=== PATIENT | female | born 1945 | race Caucasian/White ===

== ENCOUNTER 2021-03-14 14:57 | Inpatient (IN) | payer MEDICARE, OTHER ==
[~2021-03-14] VITALS: Ht 167.6 cm; Wt 55.3 kg
--- NOTE | 2021-03-14 15:28 | NUR ---
BIB DAUGHTER FOR AUDITORY HALLUCINATIONS REGARDING HER . PT DENIES VOICES ARE TELLING HER TO DO ANYTHING. DENIES SI OR INTENTION TO HURT SELF. PT HAS NOT BEEN EATING FOR 2 WEEKS. AAOX4, BREATHING EVEN AND UNLABORED, PULSES 2+ BILATERALLY.
[2021-03-14 15:58] LABS: BASOPHILS % (AUTO) 0.1 % (0.0-2.0); EOSINOPHILS % (AUTO) 0.1 % (0.0-6.0); HEMATOCRIT 39 % (33-45); HEMOGLOBIN 13.4 g/dL (11.5-14.8); LYMPHOCYTES # (AUTO) 0.8 K/uL (0.8-4.8); MEAN CORPUSCULAR HGB CONC 34 g/dl (31.0-36.0); MEAN CORPUSCULAR VOLUME 92 fL (82-100); MONOCYTES # (AUTO) 0.7 K/uL (0.1-1.30); MONOCYTES % (AUTO) 9.4 % (2.0-12.0); NEUTROPHILS # (AUTO) 5.9 K/uL (1.8-8.9); NEUTROPHILS % (AUTO) 79.4 % (43.0-81.0); PLATELET COUNT (AUTO) 253 K/uL (150-450); RED BLOOD CELL COUNT(AUTO) 4.29 MIL/uL (4.0-5.2); WHITE BLOOD COUNT (AUTO) 7.4 K/uL (4.3-11.0)
[2021-03-14] MEDS ORDERED: METO-357 PO (16:02)
[2021-03-14] MEDS ORDERED: RISP1TAB97 PO (16:02)
[2021-03-14] MEDS ORDERED: DIVA-78 PO (16:02)
[2021-03-14] MEDS ORDERED: DEXT15DR6 OP (16:02)
[2021-03-14] MEDS ORDERED: GUAI-1133 PO (16:02)
[2021-03-14] MEDS ORDERED: MELA5TAB PO (16:02)
[2021-03-14] MEDS ORDERED: SERT50TA PO (16:02)
[2021-03-14] MEDS ORDERED: CALC100067 PO (16:02)
[2021-03-14] MEDS ORDERED: ARIP5TAB10 PO (16:02)
[2021-03-14] MEDS ORDERED: RISP2TAB85 PO (16:02)
[2021-03-14] MEDS ORDERED: ACET-2605 PO (16:02)
[2021-03-14] MEDS ORDERED: CALC-1143 PO (16:02)
--- NOTE | 2021-03-14 16:09 | NUR ---
COVID SWAB DONE AND SENT TO THE LAB
[2021-03-14 16:16] LABS: CALCIUM, SERUM 8.6 mg/dL (8.5-10.1); CARBON DIOXIDE 27 mmol/L (21-32); CHLORIDE 90 mmol/L (98-107); CREATININE 1.1 mg/dL (0.6-1.3); GLUCOSE 102 mg/dL (74-106); SODIUM SERUM 125 mmol/L (136-145); UREA NITROGEN, BLOOD 11 mg/dL (7-18)
[2021-03-14 16:19] LABS: BILIRUBIN,URINE NEGATIVE (NEGATIVE); COLOR,URINE YELLOW (YELLOW); LEUKOCYTE ESTERASE ,URINE MODERATE (NEGATIVE); NITRITE, URINE NEGATIVE (NEGATIVE); PROTEIN,URINE NEGATIVE (NEGATIVE); UGLUCOSE NEGATIVE (NEGATIVE); UROBILINOGEN,URINE 0.2 EU/dL (0.2)
[2021-03-14 16:24] LABS: ALANINE AMINOTRANSFERASE 17 U/L (12-78); ALBUMIN 3.3 g/dL (3.4-5.0); ALCOHOL, BLOOD < 3 mg/dL (0-0); ALKALINE PHOSPHATASE 62 U/L (46-116); ASPARTATE AMINOTRANSFERASE 21 U/L (15-37); BILIRUBIN,DIRECT 0.1 mg/dL (0.0-0.2); BILIRUBIN,TOTAL 0.2 mg/dL (0.2-1.0); TOTAL PROTEIN, SERUM 6.7 g/dL (6.4-8.2)
[2021-03-14 16:26] LABS: BACTERIA,URINE 1+ /HPF (None Seen); RBC,URINE 0-2 /HPF (0-2); SQUAMOUS EPITHELIAL CELL,UR Few /HPF (None Seen)
[2021-03-14 16:30] LABS: ACETAMINOPHEN < 0 ug/ml (10-30)
[2021-03-14] MEDS ORDERED: IV NS 0.9% 1,000 ML BAG IV ONE (16:30)
[2021-03-14] MEDS ORDERED: CEFTRIAXONE 1GM BAG (ER ONLY) 50 ML IV ONE (16:52)
[2021-03-14] MEDS ORDERED: CEFTRIAXONE 1GM BAG (ER ONLY) 1 GM/50 ML PIGGYBACK IV ONE (17:00)
[2021-03-14] MEDS ORDERED: IV NS 0.9% 500 ML BAG IV ONE (17:00)
--- NOTE | 2021-03-14 17:07 | NUR ---
PT LAYING COMFORTABLY IN BED
[2021-03-14] MEDS ORDERED: ACETAMINOPHEN 325 MG TABLET ONE (17:10)
[2021-03-14] MEDS ORDERED: ACETAMINOPHEN 325 MG TABLET PO ONE (17:30)
[2021-03-14] MEDS ORDERED: IV NS 0.9% 500 ML IV ONE (17:30)
[2021-03-14 18:01] LABS: THYROID STIMULATING HORMONE 1.151 uIU/mL (0.358-3.74); URIC ACID 2.2 mg/dL (2.6-7.2)
--- NOTE | 2021-03-14 18:32 | NUR ---
PT LAYING COMFORTABLY IN BED
[2021-03-14 19:13] LABS: CREATININE, URINE 14.8 MG/DL (30.0-125.0)
[2021-03-14 19:27] LABS: CALCIUM, SERUM 8.7 mg/dL (8.5-10.1); CREATININE 0.9 mg/dL (0.6-1.3); POTASSIUM 3.9 mmol/L (3.5-5.1)
--- NOTE | 2021-03-14 20:10 | NUR ---
IV NS CHANGED TO 50ML/HR PER HALF BACKER ORDER
[2021-03-14] MEDS ORDERED: OLANZAPINE 5 MG TABLET ONE (20:17)
[2021-03-14] MEDS ORDERED: OLANZAPINE 5 MG TABLET PO ONE (20:30)
[2021-03-14] MEDS ORDERED: ACETAMINOPHEN ES 500 MG TABLET PO PRN (21:30)
[2021-03-14] MEDS ORDERED: CALCIUM CARBONATE 500 MG TAB.CHEW PO PRN (21:30)
[2021-03-14] MEDS ORDERED: MAGNESIUM HYDROXIDE 30 ML UDC PO PRN (22:00)
[2021-03-14] MEDS ORDERED: Medication Not On Formulary EA (Melatonin 10 MG) PO SCH (22:00)
[2021-03-14] MEDS ORDERED: MAG HYDROX/AL HYDROX/SIMETH 30 ML UDC PO PRN (22:00)
[2021-03-14] MEDS ORDERED: risperiDONE 1 MG TABLET PO SCH (22:00)
[2021-03-14] MEDS ORDERED: IV NS 0.9% 1,000 ML IV PRN (22:00)
[2021-03-14] MEDS ORDERED: Z GUARD REMEDY 2 OZ OINT TP PRN (22:00)
[2021-03-14] MEDS ORDERED: ONDANSETRON HCL/PF 4 MG/2 ML VIAL IVP PRN (22:00)
--- NOTE | 2021-03-14 23:08 | NUR ---
PT WILL BE GOING TO 116-1 PER RN HAND PACKER/PACKAGER.
--- NOTE | 2021-03-15 00:54 | NUR ---
REPORT GIVEN TO MART WHITE
--- NOTE | 2021-03-15 01:17 | NUR ---
PT TRANSPORTED TO [facility] WITHOUT INCIDENT. ALL V/S STABLE AT TIME OF TRANSFER.
[2021-03-15 01:30] VITALS: BP 154/84
--- NOTE | 2021-03-15 01:30 | NUR ---
SYSTEMS DEVELOPMENT MANAGER NOTES: 76 YEARS OLD FEMALE ADMITTED FROM ER, UNDER SERVICE OF FARAZ HORNE FOR PSYCH CONSULT DUE TO AUDITORY HALLUCINATION. DIAGNOSIS OF UTI, HYPONATREMIA. PATIENT ALERT, ORIENTED X 3, VERBALLY RESPONSIVE. NO SOB, NO CHEST CONGESTION, BREATHING EVEN AND UNLABORED. O2 SAT 97% AT ROOM AIR. IV ACCESS ON RT FOREARM #20G INTACT AND PATENT. NO S/S OF INFILTRATIONS. RUNNING NS AT 90CC/HR. BODY ASSESSMENT DONE. NOTED REDNESS ON LEFT ELBOW AND SACRUM AREA. NO OPEN SKIN OR ANY OTHER SKIN DISCOLORATIONS NOTED. SKIN WARM AND DRY TO TOUCH. ALL DUE MEDS GIVEN AND PATIENT TOLERATED WELL. COOPERATIVE W/ CARE. CONTINENT ON BOWEL AND BLADDER. ABLE TOP GO TO RESTROOM WITH ASSIST. ALL SAFETY MEASURE IN PLACE. X2 BED SIDE RAILS UP. BED IN LOW POSITION AND LOCKED. PLACE CALL LIGHT WITH IN REACH. WILL CONTINUE TO MONITOR FOR ANY CHANGES
[2021-03-15] MEDS ORDERED: POLYVINYL ALCOHOL 15 ML BOTTLE OP PRN (03:00)
[2021-03-15] MEDS: SERTRALINE HCL 50 MG TABLET PO SCH ×2 (03:06→21:14)
[2021-03-15] MEDS: IV NS 0.9% 1,000 ML IV PRN ×2 (03:09→14:52)
[2021-03-15 04:00] VITALS: BP 152/76
[2021-03-15 06:37] LABS: BASOPHILS % (AUTO) 0.4 % (0.0-2.0); EOSINOPHILS % (AUTO) 1.1 % (0.0-6.0); HEMATOCRIT 36 % (33-45); LYMPHOCYTES # (AUTO) 1.4 K/uL (0.8-4.8); MEAN CORPUSCULAR HGB CONC 34 g/dl (31.0-36.0); MEAN CORPUSCULAR VOLUME 93 fL (82-100); MONOCYTES # (AUTO) 0.7 K/uL (0.1-1.30); MONOCYTES % (AUTO) 12.4 % (2.0-12.0); NEUTROPHILS # (AUTO) 3.1 K/uL (1.8-8.9); NEUTROPHILS % (AUTO) 59.1 % (43.0-81.0); PLATELET COUNT (AUTO) 241 K/uL (150-450); RED BLOOD CELL COUNT(AUTO) 3.85 MIL/uL (4.0-5.2); WHITE BLOOD COUNT (AUTO) 5.3 K/uL (4.3-11.0)
--- NOTE | 2021-03-15 06:48 | NUR ---
RN CLOSING NOTES: PATIENT ASLEEP IN BED BUT EASILY AROUSABLE, ALERT/ORIENTED X 3 AND VERBALLY RESPONSIVE. ON ROOM AIR. BREATHING EVEN AND UNLABORED. IV ACCESS ON RT FOREARM #20G. INTACT AND PATENT. NO S/S OF INFILTRATIONS. RUNNING NS AT 90CC/HR. NO C/O PAIN OR DISCOMFORT. NO ACUTE DISTRESS. BED ALARM ON. ASSISTED HER TO THE RESTROOM. ALL SAFETY MEASURE IN PLACE. SIDE RAILS ARE UP X2. BED IN LOW POSITION AND LOCKED. PLACE CALL LIGHT WITH IN REACH. WILL ENDORSE TO MORNING SHIFT NURSE.
--- NOTE | 2021-03-15 07:00 | NUR ---
RN NOTE REPORT REC'D AT BEDSIDE BY CRISTINA/MART WHITE. PT SOUND ASLEEP. LEFT UNDISTURBED. NO SOB. ON RA. APPEARS COMFORTABLE ON HOB 30 DEG. IVF INFUSING WELL ON RH. SAFETY MEASURES OBSERVED. CALL LIGHT WITHIN REACH. BED ALARM IN PLACE FOR SAFETY. WILL CONTINUE TO MONITOR.
[2021-03-15 07:07] LABS: CALCIUM, SERUM 9.2 mg/dL (8.5-10.1); CREATININE 0.9 mg/dL (0.6-1.3); MAGNESIUM 1.9 mg/dL (1.8-2.4); PHOSPHORUS 3.7 mg/dL (2.5-4.9); POTASSIUM 3.9 mmol/L (3.5-5.1)
--- NOTE | 2021-03-15 07:30 | NUR ---
RN NOTE PT IS NOW AWAKE. ORIENTED X4. DENIES ANY AUDITORY HALLUCINATION. ASSISTEDTO THE RESTROOM AND BACK TO BED. NO C/O PAIN. WILL CONTINUE TO MONITOR
--- NOTE | 2021-03-15 08:11 | NUR ---
RN NOTE ASKED PT WHAT HER CODE STATUS IS BUT SHE SAID "I DON'T KNOPW" THUS CALLED PT'S DTR. PEÑA RE: CODE STATUS. SHE STATES THAT PT. FOR NOW IS FULL CODE. WILL INFORM .
[2021-03-15] MEDS: ARIPIPRAZOLE 5 MG TABLET PO SCH ×2 (08:21→20:32)
[2021-03-15] MEDS: risperiDONE 1 MG TABLET PO SCH ×2 (08:21→20:32)
[2021-03-15] MEDS: DIVALPROEX SODIUM 500 MG TABLET.DR PO SCH ×3 (08:21→17:26)
[2021-03-15] MEDS: METOPROLOL SUCCINATE 50 MG TAB.SR.24H PO SCH (08:22)
[2021-03-15] MEDS: CALCIUM CARBONATE (1250) 500 MG TABLET PO SCH (08:23)
[2021-03-15] MEDS: ACETAMINOPHEN 325 MG TABLET PO PRN (09:09)
--- NOTE | 2021-03-15 10:10 | NUR ---
RN NOTE PT VERBALIZED FEELING BETTER WITH HER H/A AFTER TYLENOL PO GIVEN AN HOUR AGO. NEEDS ATTENDED.
[2021-03-15 12:00] VITALS: BP 148/89
--- NOTE | 2021-03-15 13:27 | NUR ---
RN NOTE NOTIFIED DR. HALE RE: PT'S ANXIETY ATTACK AND DESIRE TO LEAVE AMA.NEW ORDER NOTED.
[2021-03-15] MEDS: ALPRAZOLAM 0.25 MG TABLET PO PRN (13:32)
[2021-03-15] MEDS: ASPIRIN/ACETAMINOPHEN/CAFFEINE 1 EACH TABLET PO PRN ×2 (14:49→22:20)
[2021-03-15] MEDS ORDERED: CEFTRIAXONE 1 G in IV D5W 50 ML IV SCH (17:00)
--- NOTE | 2021-03-15 17:00 | NUR ---
RN NOTE PT REFUSED DEPAKOTE. IMPORTANCE EMPHASIZED. PILL DISCARDED.
[2021-03-15 17:07] VITALS: BP 144/91
--- NOTE | 2021-03-15 19:00 | NUR ---
RN NOTE PT IN BED AWAKE ALERT. NO SOB. DENIES H/A NOR AUDITORY HALLUCINATION. IVF INFUSING WELL TO RFA. SAFETY MEASURES IN PLACE. ENDORSE CARE TO CHRISTOPHER BISHOP.
--- NOTE | 2021-03-15 19:20 | NUR ---
MS/RN OPENING NOTE RECEIVED PATIENT AMBULATING IN ROOM WITH WALKER. PATIENT IS ALERT AND ORIENTED X 2-3. ABLE TO MAKE NEEDS KNOWN. DENIES PAIN AT THIS TIME. CONTINUES ON ROOM AIR WITH NO S/SX OF RESPIRATORY DISTRESS NOTED. IV ACCESS TO RIGHT FOREARM #20G INTACT AND PATENT. CONTINUES ON IVF NS 0.9% @ 90ML/HR. CONTINUES ON IV ABX FOR UTI. CONTINUES ON SOFT DIET WITH NO S/SX OF ASPIRATION NOTED. CALL LIGHT WITHIN REACH. ASPIRATION, FALL AND SAFETY PRECAUTIONS MAINTAINED. WILL CONTINUE TO MONITOR.
--- NOTE | 2021-03-16 | NUR ---
MS/RN NOTE ATTEMPTED TO RECONNECT IVF AFTER PATIENT WAS UP AMBULATING. PATIENT REFUSING IVF AT THIS TIME SAYING "I DONT NEED THEM". EXPLAINED RISK/BENEFITS WITH PATIENT CONTINUING TO REFUSE. IV TO RIGHT FOREARM #20G INTACT AND PATENT. WILL CONTINUE TO MONITOR.
[2021-03-16] MEDS: IV NS 0.9% 1,000 ML IV PRN (00:40)
[2021-03-16] MEDS: ALPRAZOLAM 0.25 MG TABLET PO PRN ×2 (02:45→18:25)
--- NOTE | 2021-03-16 02:49 | NUR ---
MS/RN NOTE PATIENT REQUESTING XANAX FOR ANXIETY. ADMINISTERED PRN XANAX 0.25MG PER ORDERS. WILL CONTINUE TO MONITOR.
--- NOTE | 2021-03-16 06:30 | NUR ---
MS/RN CLOSING NOTE PATIENT CURRENTLY SLEEPING IN BED. ALERT AND ORIENTED X 2-3. ABLE TO MAKE NEEDS KNOWN. DENIES PAIN AT THIS TIME. CONTINUES ON ROOM AIR WITH NO S/SX OF RESPIRATORY DISTRESS NOTED. IV ACCESS TO RIGHT FOREARM #20G INTACT AND PATENT. CONTINUES TO REFUSE IVF. GOOD PO FLUID INTAKE NOTED. CONTINUES ON IV ABX FOR UTI. CONTINUES ON SOFT DIET WITH NO S/SX OF ASPIRATION NOTED. CALL LIGHT WITHIN REACH. ASPIRATION, FALL AND SAFETY PRECAUTIONS MAINTAINED. WILL ENDORSE PLAN OF CARE TO ONCOMING SHIFT.
[2021-03-16 07:29] LABS: BASOPHILS % (AUTO) 0.4 % (0.0-2.0); EOSINOPHILS % (AUTO) 1.1 % (0.0-6.0); HEMATOCRIT 32 % (33-45); LYMPHOCYTES # (AUTO) 1.4 K/uL (0.8-4.8); LYMPHOCYTES % (AUTO) 25.7 % (20.0-44.0); MEAN CORPUSCULAR HGB CONC 34 g/dl (31.0-36.0); MEAN CORPUSCULAR VOLUME 93 fL (82-100); MONOCYTES # (AUTO) 0.7 K/uL (0.1-1.30); MONOCYTES % (AUTO) 13.7 % (2.0-12.0); NEUTROPHILS # (AUTO) 3.2 K/uL (1.8-8.9); NEUTROPHILS % (AUTO) 59.1 % (43.0-81.0); PLATELET COUNT (AUTO) 236 K/uL (150-450); RED BLOOD CELL COUNT(AUTO) 3.46 MIL/uL (4.0-5.2); WHITE BLOOD COUNT (AUTO) 5.4 K/uL (4.3-11.0)
--- NOTE | 2021-03-16 07:41 | NUR ---
RN OPENING NOTE RECEIVED PATIENT SLEEPING COMFORTABLY ON ROOM AIR O2 SAT 98% WITH NO S/SX OF RESPIRATORY DISTRESS NOTED. IV ACCESS TO RIGHT FOREARM #20G INTACT AND PATENT. SAFETY MEASURES IN PLACE BED ALARM ON, CALL LIGHT WITHIN REACH. WILL CONTINUE TO MONITOR.
[2021-03-16 07:49] LABS: CALCIUM, SERUM 8.6 mg/dL (8.5-10.1); CREATININE 0.9 mg/dL (0.6-1.3); PHOSPHORUS 3.4 mg/dL (2.5-4.9)
[2021-03-16 08:59] VITALS: BP 163/97
[2021-03-16] MEDS: ARIPIPRAZOLE 5 MG TABLET PO SCH ×2 (09:09→21:21)
[2021-03-16] MEDS: METOPROLOL SUCCINATE 50 MG TAB.SR.24H PO SCH (09:09)
[2021-03-16] MEDS: CALCIUM CARBONATE (1250) 500 MG TABLET PO SCH (09:09)
[2021-03-16] MEDS: risperiDONE 1 MG TABLET PO SCH ×3 (09:09→21:22)
--- NOTE | 2021-03-16 09:26 | NUR ---
RN NOTE PT PULLED OUT THE NICOLÁS IV AND IS ALSO REFUSING FLUIDS WILL INFORM DOCTOR
[2021-03-16 13:00] VITALS: BP 140/90
[2021-03-16] MEDS: CEPHALEXIN MONOHYDRATE 250 MG CAPSULE PO SCH ×2 (13:07→16:07)
[2021-03-16] MEDS: DIVALPROEX SODIUM 500 MG TABLET.DR PO SCH (16:07)
--- NOTE | 2021-03-16 18:33 | NUR ---
RN CLOSING NOTE PATIENT REMAINS IN BED ALERT AND ORIENTED X2/3 CONFUSED AT TIMES, ON ROOM AIR O2 SAT 97% WITH NO S/SX OF RESPIRATORY DISTRESS NOTED. NO IV ACCES PT REFUSED AND DOCTOR NOTIFIED, DC IV MEDS, XANAX GIVEN AT 18:25, ALL NEEDS MET DURING SHIFT PT KEEP CLEAN AND COMFORTABLE, SAFETY MEASURES IN PLACE BED ALARM ON, CALL LIGHT WITHIN REACH. WILL ENDORSE TO BABY COUNSELORDIVISION OFFICER WEAPONS DEPARTMENT
--- NOTE | 2021-03-16 19:10 | NUR ---
RN NOTES RECEIVED REPORT FROM MORNING RN. PATIENT IS A/O X 2 WITH PERIODS OF CONFUSION. PATIENT IN BED WATCHING TV. NO DISTRESS NO SOB AT THIS TIME. PATIENT ON ROOM AIR SATING 95%. VITAL SIGNS TAKEN RECORDED. ALL SAFETY MEASURES IN PLACE AT ALL TIEMS. CALL LIGHT WITHIN REACH. BED ON LOWEST POSITION AND LOCKED. HOB ELEVATED.CALL LIGHT WITHIN REACH. WILL CLOSELY MONITOR THE PATIENT.
[2021-03-16 20:00] VITALS: BP 133/70
[2021-03-16] MEDS: SERTRALINE HCL 50 MG TABLET PO SCH (21:22)
[2021-03-16] MEDS: ACETAMINOPHEN 325 MG TABLET PO PRN (23:13)
[2021-03-17 04:00] VITALS: BP 133/71
--- NOTE | 2021-03-17 06:42 | NUR ---
RN NOTES PATIENT IN BED AWAKE WATCHING TV. PATIENT REMAINS STABLE NO SIGNIFICANT CHANGES IN HEALTH CONDITION. VITAL SIGNS WNL. ALL DUE MEDS GIVEN ORDERED. ALL SAFETY MEASURES IN PLACE. HOB ELEVATED. CALL LIGHT WITHIN REACH. BED ON LOWEST POSITION AND LOCKED. NO SOB NO DISTRESS ALL NEEDS ATTENDED PROMPTLY. KEPT CLEAN AND DRY AT ALL TIMES. FREQUENT VISUAL MONITORING RENDERED. ENDORSED
[2021-03-17 06:57] LABS: BASOPHILS % (AUTO) 0.1 % (0.0-2.0); EOSINOPHILS % (AUTO) 2.1 % (0.0-6.0); HEMATOCRIT 36 % (33-45); HEMOGLOBIN 12.2 g/dL (11.5-14.8); LYMPHOCYTES # (AUTO) 0.9 K/uL (0.8-4.8); LYMPHOCYTES % (AUTO) 17.1 % (20.0-44.0); MEAN CORPUSCULAR HGB CONC 34 g/dl (31.0-36.0); MEAN CORPUSCULAR VOLUME 93 fL (82-100); MONOCYTES # (AUTO) 0.6 K/uL (0.1-1.30); NEUTROPHILS # (AUTO) 3.5 K/uL (1.8-8.9); NEUTROPHILS % (AUTO) 69.7 % (43.0-81.0); PLATELET COUNT (AUTO) 247 K/uL (150-450); RED BLOOD CELL COUNT(AUTO) 3.88 MIL/uL (4.0-5.2); WHITE BLOOD COUNT (AUTO) 5.1 K/uL (4.3-11.0)
[2021-03-17 07:34] LABS: CALCIUM, SERUM 8.6 mg/dL (8.5-10.1); CREATININE 0.9 mg/dL (0.6-1.3); MAGNESIUM 1.8 mg/dL (1.8-2.4); PHOSPHORUS 3.3 mg/dL (2.5-4.9); POTASSIUM 4.1 mmol/L (3.5-5.1)
--- NOTE | 2021-03-17 07:42 | NUR ---
RN OPEN NOTE PATIENT RECEIVED SITTING IN BED ALERT AND ORIENTED X2/3, ON ROOM AIR O2 SAT 96% WITH NO S/SX OF RESPIRATORY DISTRESS NOTED. NO IV ACCES PT REFUSED, SAFETY MEASURES IN PLACE BED ALARM ON, CALL LIGHT WITHIN REACH. WILL CONTINUE TO MONITOR
[2021-03-17] MEDS: CEPHALEXIN MONOHYDRATE 250 MG CAPSULE PO SCH ×2 (08:39→16:21)
[2021-03-17] MEDS: ARIPIPRAZOLE 5 MG TABLET PO SCH ×2 (08:40→20:39)
[2021-03-17] MEDS: CALCIUM CARBONATE (1250) 500 MG TABLET PO SCH (08:40)
[2021-03-17] MEDS: DIVALPROEX SODIUM 500 MG TABLET.DR PO SCH ×2 (08:40→16:21)
[2021-03-17] MEDS: risperiDONE 1 MG TABLET PO SCH ×3 (08:40→20:39)
[2021-03-17] MEDS: METOPROLOL SUCCINATE 50 MG TAB.SR.24H PO SCH (08:41)
--- NOTE | 2021-03-17 08:41 | NUR ---
RN NOTES PT IS REFUSING VITAL SIGN
--- NOTE | 2021-03-17 12:30 | NUR ---
RN NOTES PT REFUSED VITAL SIGN AGAIN AND SHE DOES NOT WANT TO EAT LUNCH, SHE ONLY WANTS COFFEE
--- NOTE | 2021-03-17 16:00 | NUR ---
rn pt keeps refusing vital sign
--- NOTE | 2021-03-17 18:00 | NUR ---
RN CLOSING NOTE PATIENT REMAINS SITTING IN BED WALKING AROUND SOME TIMES, ALERT AND ORIENTED X2/3, ON ROOM AIR O2 SAT 98% WITH NO S/SX OF RESPIRATORY DISTRESS NOTED. NO IV ACCES ,PT REFUSED ALSO VITAL SIGN, SAFETY MEASURES IN PLACE BED ALARM ON, CALL LIGHT WITHIN REACH. WILL ENDORSE TO ALARM INVESTIGATORPROJECT PRODUCT MANAGER
--- NOTE | 2021-03-17 19:30 | NUR ---
RN OPENING NOTES: RECEIVED PATIENT IN BED SITTING POSITION. ALERT, ORIENTED X2/3 WITH CONFUSION AND VERBALLY RESPONSIVE. ON ROOM AIR. NO SOB, NO C/O CHEST CONGESTION, BREATHING EVEN AND UNLABORED. NO IV ACCESS DUE TO PATIENT'S REFUSAL. NO C/O PAIN OR DISCOMFORT. NO ACUTE DISTRESS NOTED. CONTINENT ON BOWEL AND BLADDER. PATIENT ABLE TO USE RESTROOM WITH ASSIST. ALL SAFETY MEASURES ON PLACE. BED IN LOW POSITION AND LOCKED. PLACE CALL LIGHT WITH IN REACH. WILL CONTINUE TO MONITOR.
[2021-03-17 20:00] VITALS: BP 139/98
[2021-03-17] MEDS: ALPRAZOLAM 0.25 MG TABLET PO PRN (20:40)
[2021-03-17] MEDS: ASPIRIN/ACETAMINOPHEN/CAFFEINE 1 EACH TABLET PO PRN (20:40)
--- NOTE | 2021-03-17 20:55 | NUR ---
PATIENT C/O HEADACHE, EXCEDRIN GIVEN PER PATIENT'S REQUEST. XANAX GIVEN FOR DUE TO FEELING ANXIETY. TOLERATED WELL. WILL CONTINUE TO MONITOR
--- NOTE | 2021-03-17 21:00 | NUR ---
patient strongly refused to take Zoloft. she mentioned, she already took lots of Meds. wasted. Dr. Park already d/c the medication.
[2021-03-18 04:00] VITALS: BP 149/96
--- NOTE | 2021-03-18 06:30 | NUR ---
RN CLOSING NOTES: PATIENT IN BED AWAKE. ALERT, ORIENTED X2/3 WITH CONFUSION AND VERBALLY RESPONSIVE. ON ROOM AIR, O2 SAT 96%. BREATHING EVEN AND UNLABORED. NO IV ACCESS. NO C/O PAIN OR DISCOMFORT AT THIS MOMENT. NO ACUTE DISTRESS. ALL DUE MEDS GIVEN AND TOLERATED WELL. CONTINENT ON BOWEL AND BLADDER. ABLE TO USE RESTROOM WITH ASSIST. ALL SAFETY MEASURES ON PLACE. BED IN LOW POSITION AND LOCKED. PLACE CALL LIGHT WITH IN REACH. WILL ENDORSE TO MORNING SHIFT.
[2021-03-18 07:05] LABS: BASOPHILS % (AUTO) 0.2 % (0.0-2.0); HEMATOCRIT 34 % (33-45); HEMOGLOBIN 11.7 g/dL (11.5-14.8); LYMPHOCYTES # (AUTO) 0.8 K/uL (0.8-4.8); LYMPHOCYTES % (AUTO) 16.4 % (20.0-44.0); MEAN CORPUSCULAR HGB CONC 34 g/dl (31.0-36.0); MEAN CORPUSCULAR VOLUME 93 fL (82-100); MONOCYTES # (AUTO) 0.5 K/uL (0.1-1.30); MONOCYTES % (AUTO) 11.5 % (2.0-12.0); NEUTROPHILS # (AUTO) 3.4 K/uL (1.8-8.9); NEUTROPHILS % (AUTO) 70.9 % (43.0-81.0); PLATELET COUNT (AUTO) 247 K/uL (150-450); RED BLOOD CELL COUNT(AUTO) 3.69 MIL/uL (4.0-5.2); WHITE BLOOD COUNT (AUTO) 4.7 K/uL (4.3-11.0)
[2021-03-18 07:15] LABS: CALCIUM, SERUM 8.6 mg/dL (8.5-10.1); CREATININE 0.9 mg/dL (0.6-1.3); MAGNESIUM 1.8 mg/dL (1.8-2.4); PHOSPHORUS 3.9 mg/dL (2.5-4.9); POTASSIUM 3.8 mmol/L (3.5-5.1)
--- NOTE | 2021-03-18 07:54 | NUR ---
RN MORNING NOTES PT RECEIVED IN BED IN SUPINE POSITION. PT IS ON RA SAT 95% TOLERATING WELL WITH NO SIGNS OF DISTRESS OR LABORED BREATHING. PT IS A/O X 2- 3 AND MS AND AMBULATORY. PT IS ON SOFT DIET WITH NO IV ACCESS PT REFUSED. PT ALSO REFUSED MORNING VITALS. BED IS LOCKED IN LOWEST POSITION X2 GUARD RAILS, CALL MENDEZ WITHIN REACH, AND ALL HOSPITAL SAFETY PRECAUTIONS ARE IN PLACE. WILL CONTINUE TO MONITOR THIS SHIFT.
[2021-03-18] MEDS: METOPROLOL SUCCINATE 50 MG TAB.SR.24H PO SCH (09:00)
--- NOTE | 2021-03-18 09:30 | NUR ---
RN NOTE MEDICATION PT REFUSED VITALS. BP MED HELD.
[2021-03-18] MEDS: DIVALPROEX SODIUM 500 MG TABLET.DR PO SCH ×2 (09:37→17:33)
[2021-03-18] MEDS: CEPHALEXIN MONOHYDRATE 250 MG CAPSULE PO SCH ×2 (09:37→17:33)
[2021-03-18] MEDS: CALCIUM CARBONATE (1250) 500 MG TABLET PO SCH (09:38)
[2021-03-18] MEDS: risperiDONE 1 MG TABLET PO SCH ×3 (09:38→21:07)
[2021-03-18 12:00] VITALS: BP 149/96
[2021-03-18] MEDS: ASPIRIN/ACETAMINOPHEN/CAFFEINE 1 EACH TABLET PO PRN (13:15)
[2021-03-18] MEDS: ALPRAZOLAM 0.25 MG TABLET PO PRN (13:16)
[2021-03-18 16:00] VITALS: BP 118/82
--- NOTE | 2021-03-18 19:15 | NUR ---
1914 Report received from CHRISTOPHER Cummins for transfer of care.
--- NOTE | 2021-03-18 19:24 | NUR ---
RN CLOSING NOTE PT IS SITTING UP IN CHAIR. PT IS ON RA SAT 96% TOLERATING WELL WITH NO SIGNS OF DISTRESS OR LABORED BREATHING. PT IS A/O X 2- 3 AND MS AND AMBULATORY. PT IS ON SOFT DIET WITH NO IV ACCESS PT REFUSED. PT ALSO REFUSED MORNING VITALS. BED IS LOCKED IN LOWEST POSITION X2 GUARD RAILS, CALL MENDEZ WITHIN REACH, AND ALL HOSPITAL SAFETY PRECAUTIONS ARE IN PLACE. WILL ENDORSE TO BINDERY MACHINE SETTER/SET UP OPERATOR NURSE FOR BALA.
--- NOTE | 2021-03-18 19:35 | NUR ---
1934 Patient sitting up on edge of bed. No complain of pain or any discomfort when asked. Offered to insert new IV line but patient strongly refused. Explained the need for IV access but patient verbalized she does not need it. Able to ambulate without assistance. No c/o SOB when asked. Call light placed within reach and instructed patient to call for assistance.
--- NOTE | 2021-03-18 20:15 | NUR ---
2015 Pt. strongly refusing vital signs to be checked. Explained the importance of vitals signs being checked but to no avail. Pt. is independently ambulating in the room. Safety precautions ensured. Will continue to monitor closely.
--- NOTE | 2021-03-18 22:30 | NUR ---
2230 Patient ambulates back and forth in the room. Safety precaution ensured at all times.
--- NOTE | 2021-03-19 02:20 | NUR ---
0220 In bed watching TV. No distress noted. Cont. to deny pain. Kept clean and dry. Needs anticipated.
--- NOTE | 2021-03-19 04:00 | NUR ---
0400 Patient refused vital signs to be taken again despite encouragement and explanation of importance. In bed sleeping. No c/o pain when assessed and asked to be left alone. Will cont. to monitor.
--- NOTE | 2021-03-19 07:10 | NUR ---
0710 REPORT GIVEN TO CHRISTOPHER NOEL AND KELLI FOR TRANSFER OF CARE WITH QUESTIONS ANSWERED.
--- NOTE | 2021-03-19 07:35 | NUR ---
RN OPENING NOTE PT RECEIVED IN BED IN SUPINE POSITION. PT IS ON RA SAT 95% TOLERATING WELL WITH NO SIGNS OF DISTRESS OR LABORED BREATHING. PT IS A/O X 2- 3 AND MS AND AMBULATORY. PT IS ON SOFT DIET WITH NO IV ACCESS PT REFUSED. BED IS LOCKED IN LOWEST POSITION X2 GUARD RAILS, CALL MENDEZ WITHIN REACH, AND ALL SAFETY PRECAUTIONS ARE IN PLACE.
[2021-03-19] MEDS: METOPROLOL SUCCINATE 50 MG TAB.SR.24H PO SCH ×2 (08:29→14:44)
[2021-03-19] MEDS: risperiDONE 1 MG TABLET PO SCH ×4 (08:32→21:32)
[2021-03-19] MEDS: CEPHALEXIN MONOHYDRATE 250 MG CAPSULE PO SCH ×2 (08:32→16:17)
[2021-03-19] MEDS: CALCIUM CARBONATE (1250) 500 MG TABLET PO SCH (08:32)
[2021-03-19] MEDS: DIVALPROEX SODIUM 500 MG TABLET.DR PO SCH ×2 (08:32→16:17)
--- NOTE | 2021-03-19 08:36 | NUR ---
RN NOTE PATIENT REFUSED ALL MEDICATIONS AND VITALS SIGNS, EDUCATED PATIENT ON THE IMPORTANCE OF MEDICATIONS AND VITALS PATIENT INSISTED ON DECLINING ALL MEDS AND VITALS.
[2021-03-19] MEDS: ALPRAZOLAM 0.25 MG TABLET PO PRN (11:32)
--- NOTE | 2021-03-19 12:42 | NUR ---
RN NOTE PATIENT REFUSED NOON VITALS AND MEDICATIONS. ONLY TOOK PRN XANAX
--- NOTE | 2021-03-19 12:52 | NUR ---
RN NOTE PER SPEECH THERAPY DIRECTOR PATIENT WILL BE PICKED UP AT 2PM AND TAKEN TO [facility]
[2021-03-19] MEDS ORDERED: Cephalexin Monohydrate PO (13:07)
--- NOTE | 2021-03-19 13:26 | NUR ---
RN NOTE GAVE REPORT TO LARA WHITE FROM [facility], PATIENT BEING PICKED UP AT 2PM
[2021-03-19] MEDS ORDERED: hydrALAZINE HCL 10 MG TABLET PO ONE (15:00)
--- NOTE | 2021-03-19 15:16 | NUR ---
BP 151/110,HR 122 POST BP MEDS GIVEN PER FACILITY UNABLE TO TAKE,BHARAT RANGEL MADE AWARE,CM PLACE AMBULANCE ON WILL CALL.
[2021-03-19 16:02] VITALS: BP 134/68
--- NOTE | 2021-03-19 16:03 | NUR ---
RN NOTE PATIENTS B/P CHECKED AT 1600 WITH READING 134/68 WITH PULSE OF 85. AMBULANCE CALLED FOR PATIENT PIT SUPERVISOR.
[2021-03-19 17:00] VITALS: BP 175/78
--- NOTE | 2021-03-19 17:17 | NUR ---
RN NOTE PATIENT HAS BP >160. FACILITY REFUSING TO ACCEPT PATIENT. DR. RANGEL NOTIFIED OF PATIENT TAKING BOTH METROPOLOL AND HYDRALAZINE AT 1500. NO NEW ORDERS.
[2021-03-19 18:07] VITALS: BP 165/70
--- NOTE | 2021-03-19 18:36 | NUR ---
RN CLOSING NOTE PT IS SITTING UP IN CHAIR. PT IS ON RA SAT >95% TOLERATING WELL WITH NO SIGNS OF DISTRESS OR LABORED BREATHING. PT IS A/O X 2- 3 AND MS AND AMBULATORY. PT IS ON SOFT DIET WITH NO IV ACCESS PT REFUSED. PT ALSO REFUSED MORNING VITALS. BED IS LOCKED IN LOWEST POSITION X2 GUARD RAILS, CALL MENDEZ WITHIN REACH, AND ALL HOSPITAL SAFETY PRECAUTIONS ARE IN PLACE. WILL ENDORSE TO COMPUTER SYSTEM SPECIALIST NURSE FOR BALA.
[2021-03-19 20:00] VITALS: BP 168/79
--- NOTE | 2021-03-19 20:00 | NUR ---
MS RN NOTE PT IN BED SITTING UP WATCHING TV. A/O X 2, NO SOB, NO DISTRESS OR DISCOMFORT NOTED. DENIES PAIN. PT HAS NO IV ACCESS MD AWARE. B/P REMAIN HIGH 168/79. PT SUPPOSE TO BE DISCHARGED TO SNF IF B/P COMES BELOW 160. WILL INFORM EXECUTIVE HOUSEKEEPER MD. SIDE RAILS UP X 2 AND CALL LIGHT WITHIN REACH. CONTINUE TO MONITOR.
--- NOTE | 2021-03-19 20:05 | NUR ---
MS RN NOTE LEFT A MESSAGE FOR ETHERNET NETWORK ARCHITECT MD BUT NO MD IS SCHEDULE FOR ETHERNET NETWORK ARCHITECT. CELL PREPARER ALSO INFORMED. CHARGE NURSE MADE AWARE. PT BP REMAIN ELEVATED.
--- NOTE | 2021-03-19 21:00 | NUR ---
MS RN NOTE FARAZ GUSMAN CALLED BACK AND INFORMED HER THAT PT SUPPOSE TO BE DC IF B/P COMES DOWN BELOW 160 BUT AT THIS TIME IT WENT UP TO 164 / 110. PER FARAZ OK TO KEEP PT HERE TONIGHT. ALSO INFORMED NURSE ALLIE AT [facility].
[2021-03-20 04:00] VITALS: BP 116/76
--- NOTE | 2021-03-20 06:44 | NUR ---
MS RN NOTE PT IN BED ASLEEP, NO DISTRESS OR DISCOMFORT NOTED. DENIES PAIN. VSS. B/P CAME DOWN TO 116/76. ALL NEEDS ATTENDED. SIDE RAILS UP X 2 AND CALL LIGHT WITHIN REACH. WILL ENDORSE TO DAY SHIFT NURSE FOR CONTINUE TO CARE.
[2021-03-20 08:39] VITALS: BP 149/87
[2021-03-20] MEDS ORDERED: LISINOPRIL (5MG) 5 MG TABLET PO SCH (09:00)
[2021-03-20] MEDS: DIVALPROEX SODIUM 500 MG TABLET.DR PO SCH (09:03)
[2021-03-20] MEDS: risperiDONE 1 MG TABLET PO SCH (09:04)
[2021-03-20] MEDS: METOPROLOL SUCCINATE 50 MG TAB.SR.24H PO SCH (09:04)
[2021-03-20] MEDS ORDERED: NITROGLYCERIN PACKET 1 GM PACKET TOP ONE (10:00)
[2021-03-20] MEDS ORDERED: ENSURE ENLIVE 237 ML LIQUID (VANILLA) PO SCH (10:30)
--- NOTE | 2021-03-20 10:30 | NUR ---
patient spit the pills.
--- NOTE | 2021-03-20 10:45 | NUR ---
tried po meds.offered 4x explained the benefits still refusing bp 159/93.vic parikh notified .nitropaste 1inch applied chest wall and still ok to discharge. dr. gamboa also made aware.
[2021-03-20 10:48] VITALS: BP 159/93
[2021-03-20 12:27] VITALS: BP 127/86
== END 2021-03-20 12:30 | DRG 640 ==
LOC: ER 15:03 → MEDSG1 03-15 00:51
PROVIDERS: ADMIT Nurse Practitioner Acute Care; ATTEND Nurse Practitioner Acute Care
DX: E86.0 Dehydration (principal); G93.41 Metabolic encephalopathy; N39.0 Urinary tract infection, site not specified; E86.1 Hypovolemia; E87.1 Hypo-osmolality and hyponatremia; I10 Essential (primary) hypertension; F29 Unspecified psychosis not due to a substance or known physiological condition; E88.09 Other disorders of plasma-protein metabolism, not elsewhere classified; Z20.822 Contact with and (suspected) exposure to COVID-19; Z79.899 Other long term (current) drug therapy; F31.9 Bipolar disorder, unspecified; B96.89 Other specified bacterial agents as the cause of diseases classified elsewhere; E87.3 Alkalosis; F25.0 Schizoaffective disorder, bipolar type
CPT/HCPCS: 36415; 80048-TC; 80076-TC; 81001; 82570-TC; 83735-TC; 84100-TC; 84300-TC; 84443-TC; 84550-TC; 85025-TC; 87081-TC; 87086-TC; 97116-TC; 97530-TC; C9803; G0378; G0480; J0696; J7030; J7040; J7060; U0003

== ENCOUNTER 2021-08-06 22:42 | Emergency (ER) | payer MEDICARE, OTHER ==
[~2021-08-06] VITALS: Ht 167.6 cm; Wt 55.3 kg
[~2021-08-06 22:42] MED LIST: ACET-2605 PO; CALC-1143 PO; CALC100067 PO; Cephalexin Monohydrate PO; DEXT15DR6 OP; DIVA-78 PO; MELA5TAB PO; METO-357 PO; RISP1TAB97 PO; RISP2TAB85 PO; SERT50TA PO
--- NOTE | 2021-08-06 23:02 | NUR ---
PATIENT BIBFAMILY C/O + SI FROM [facility], LEFT FACILITY. PT WAS THREATNING STAFF AT [facility], DOES NOT WANT TO GO BACK. PT HAVING HALLUCINATIONS. PATIENT IS A/O X 3, RR EVEN AND UNLABORED, NO SOB NOTED. PATIENT TAKEN TO ER BED 13. SITTER AT BEDSIDE. WILL CONTINUE TO MONITOR.
--- NOTE | 2021-08-06 23:04 | NUR ---
URINE COLLECTED SENT TO LAB
--- NOTE | 2021-08-06 23:07 | NUR ---
COVID SWAB COLLECTED AND SENT TO LAB
--- NOTE | 2021-08-06 23:15 | NUR ---
WOOD TYPE FINISHER AT PT'S BEDSIDE
[2021-08-06 23:23] LABS: BILIRUBIN,URINE NEGATIVE (NEGATIVE); COLOR,URINE YELLOW (YELLOW); LEUKOCYTE ESTERASE ,URINE LARGE (NEGATIVE); NITRITE, URINE NEGATIVE (NEGATIVE); PROTEIN,URINE NEGATIVE (NEGATIVE); UGLUCOSE NEGATIVE (NEGATIVE); UROBILINOGEN,URINE 0.2 EU/dL (0.2)
[2021-08-06 23:31] LABS: BASOPHILS % (AUTO) 0.2 % (0.0-2.0); EOSINOPHILS % (AUTO) 0.2 % (0.0-6.0); HEMATOCRIT 39 % (33-45); HEMOGLOBIN 12.8 g/dL (11.5-14.8); LYMPHOCYTES % (AUTO) 15.3 % (20.0-44.0); MEAN CORPUSCULAR HGB CONC 33 g/dl (31.0-36.0); MEAN CORPUSCULAR VOLUME 89 fL (82-100); MONOCYTES # (AUTO) 0.5 K/uL (0.1-1.30); NEUTROPHILS # (AUTO) 4.9 K/uL (1.8-8.9); NEUTROPHILS % (AUTO) 76.3 % (43.0-81.0); PLATELET COUNT (AUTO) 157 K/uL (150-450); RED BLOOD CELL COUNT(AUTO) 4.37 MIL/uL (4.0-5.2); WHITE BLOOD COUNT (AUTO) 6.4 K/uL (4.3-11.0)
[2021-08-06 23:45] LABS: BACTERIA,URINE Many /HPF (None Seen); WBC,URINE 81-100 /HPF (0-3)
[2021-08-06 23:46] LABS: SQUAMOUS EPITHELIAL CELL,UR Moderate /HPF (None Seen)
[2021-08-06 23:47] LABS: CALCIUM, SERUM 9.4 mg/dL (8.5-10.1); CARBON DIOXIDE 30 mmol/L (21-32); CHLORIDE 103 mmol/L (98-107); GLUCOSE 109 mg/dL (74-106); SODIUM SERUM 139 mmol/L (136-145); UREA NITROGEN, BLOOD 20 mg/dL (7-18)
[2021-08-07 00:02] LABS: ALANINE AMINOTRANSFERASE 10 U/L (12-78); ALBUMIN 2.8 g/dL (3.4-5.0); ALCOHOL, BLOOD < 3 mg/dL (0-0); ALKALINE PHOSPHATASE 74 U/L (46-116); ASPARTATE AMINOTRANSFERASE 11 U/L (15-37); BILIRUBIN,TOTAL 0.2 mg/dL (0.2-1.0); TOTAL PROTEIN, SERUM 6.3 g/dL (6.4-8.2)
[2021-08-07 00:03] LABS: ACETAMINOPHEN < 2 ug/ml (10-30)
--- NOTE | 2021-08-07 09:00 | NUR ---
ABDIRASHID CONNER AT BEDSIDE FOR EVAL
--- NOTE | 2021-08-07 09:53 | NUR ---
CALLED PT DAUGHTER PEÑA [phone] WILL BE HERE AT 1130 TO COLLECT PT.
--- NOTE | 2021-08-07 14:08 | NUR ---
Patient discharged to home in stable condition. Written and verbal after care instructions given. Patient verbalizes understanding of instruction. Patient's daughter picked up patient and was provided with rersources from [employer].
[2021-08-07 14:11] VITALS: BP 141/81
== END 2021-08-07 14:11 | disposition home or self-care (01) ==
LOC: ER 22:48
DX: R45.1 Restlessness and agitation (principal); F31.9 Bipolar disorder, unspecified; F25.9 Schizoaffective disorder, unspecified; I10 Essential (primary) hypertension; Z79.899 Other long term (current) drug therapy; Z20.822 Contact with and (suspected) exposure to COVID-19
CPT/HCPCS: 36415; 80048-TC; 80076-TC; 81001; 85025-TC; 87086-TC; C9803; G0480